=== PATIENT | male | born 1990 | race Caucasian/White ===

== ENCOUNTER 2018-04-23 10:53 | Inpatient (IN) | payer OTHER ==
[2018-04-23] VITALS (13 sets, daily range): BP systolic 125–155; BP diastolic 66–113
[~2018-04-23] VITALS: Ht 182.9 cm; Wt 110.7 kg
[~2018-04-23 10:53] MED LIST: ALBUTEROL INHAL17 GM; ALBUTEROL2.5 MG/31 INH; CLARITIN10 MG; NORCO 5-325 TA1 EACH PO; NORFLEX100 MG PO; SINGULAIR
[2018-04-23] MEDS ORDERED: ZOLOFT25 MG PO (10:58)
[2018-04-23] MEDS ORDERED: XANAX1 MG PO (10:58)
[2018-04-23] MEDS ORDERED: BUPRENORPHIN-N1 EACH PO (10:58)
[2018-04-23 11:26] LABS: HEMATOCRIT 42.9 % (42.0-52.0); HEMOGLOBIN 14.2 gm/dL (14.0-18.0); MCH 29.5 pg (26.0-34.0); MCV 89.2 fL (80.0-100.0); MPV 7.9 fl. (7.2-11.1); NUCLEATED RBCS 0 /100WBC; PLATELET COUNT* 258 thou/uL (150-400); RBC 4.81 mil/uL (4.50-6.00); RDW-CV 13.9 % (10.5-14.5); WBC 18.5 thou/uL (4.0-11.0)
[2018-04-23 11:31] LABS: CALCIUM 8.8 mg/dL (8.5-10.1); CREATININE 0.8 mg/dL (0.6-1.3); POTASSIUM 4.2 mmol/L (3.5-5.1)
[2018-04-23 11:36] LABS: TOTAL BILIRUBIN 0.2 mg/dL (<0.1-1.0); TOTAL PROTEIN 7.2 g/dL (6.4-8.2)
[2018-04-23 11:36] LABS: AMP/METHAMP Negative (Negative); BARBITURATES Negative (Negative); BENZODIAZEPINES POSITIVE (Negative); COCAINE Negative (Negative); METHADONE Negative (Negative); OPIATES Negative (Negative); PCP Negative (Negative); THC Negative (Negative)
[2018-04-23 11:59] LABS: ABSOLUTE LYMPHOCYTES 1.5 thou/uL (0.8-5.3); ABSOLUTE MONOCYTES 1.1 thou/uL (0.0-1.2); ABSOLUTE NEUTROPHILS 15.9 thou/uL (1.6-8.1); ANISOCYTOSIS 1+; PLATELET ESTIMATE ADEQUATE; POIKILOCYTOSIS 1+
[2018-04-23 14:21] LABS: APTT 25.9 Seconds (25.0-31.3); PROTIME 10.1 Seconds (9.20-11.50)
[2018-04-23 14:33] LABS: BE -0.2 mmol/L (-2 to +3); HCO3 26.7 mmol/L (22.0-26.0); PCO2 52.9 mmHg (35.0-45.0); pH 7.321 (7.340-7.450)
[2018-04-23 16:12] LABS: ACETAMINOPHEN < 2 ug/mL (10-30); SALICYLATE 3.2 mg/dL (2.8-20.0)
[2018-04-23 17:09] LABS: BE 0.3 mmol/L (-2 to +3); HCO3 27.3 mmol/L (22.0-26.0); PO2 64.8 mmHg (75.0-100.0); pH 7.324 (7.340-7.450)
[2018-04-23 17:13] LABS: PCO2 53.8 mmHg (35.0-45.0)
[2018-04-24] VITALS (14 sets, daily range): BP systolic 111–143; BP diastolic 61–93
[2018-04-24 02:07] LABS: HIV-1/HIV-2 ANTIBODY Non Reactive (Non Reactive)
[2018-04-24 05:32] LABS: HEMATOCRIT 40.1 % (42.0-52.0); HEMOGLOBIN 13.2 gm/dL (14.0-18.0); MCH 29.7 pg (26.0-34.0); MCHC 32.9 g/dL (28.0-37.0); MCV 90.3 fL (80.0-100.0); MPV 8.9 fl. (7.2-11.1); RBC 4.44 mil/uL (4.50-6.00); RDW-CV 13.7 % (10.5-14.5); WBC 9.6 thou/uL (4.0-11.0)
[2018-04-24 05:41] LABS: ALBUMIN 3.4 g/dL (3.4-5.0); CALCIUM 7.9 mg/dL (8.5-10.1); CREATININE 0.7 mg/dL (0.6-1.3); POTASSIUM 4.5 mmol/L (3.5-5.1); TOTAL BILIRUBIN 0.3 mg/dL (<0.1-1.0); TOTAL PROTEIN 6.6 g/dL (6.4-8.2)
[2018-04-24 06:57] LABS: BE 0.6 mmol/L (-2 to +3); PO2 83.3 mmHg (75.0-100.0)
[2018-04-24 07:00] LABS: pH 7.274 (7.340-7.450)
--- NOTE | 2018-04-24 07:50 | CON ---
[address] [address] CONSULTATION Name: LORENAKAREN NICK Room: [address] IN M.R.#: [id number] Admission: 04/23/18 Attend Phys: Suzy Dyer MD Discharge: Date of : 88 Report #: [id number] THIS REPORT FOR: //name// CC: [facility] physician/PCP Suzy Dyer DATE OF SERVICE: 04/23/2018 Infectious Disease Consultation ATTENDING PHYSICIAN: Dr. Dyer. REASON FOR EVALUATION: Pneumonitis, complicated by hemoptysis. HISTORY OF PRESENT ILLNESS: Chart reviewed, patient examined. The patient is a 28-year-old man with a history of asthma who was fairly well controlled, who apparently woke this morning, was expectorating large amounts of blood as he describes, not clear that he has had significant prodromal illness. He went to bed last night feeling okay. Evaluation was found to have his mild temperature elevation. X-ray shows infiltrates in the right upper and middle lobe. CT suggests perhaps necrotizing component. He is mildly encephalopathic. Denies significant pulmonary-related complaints. He has not been anorexic. Weight has been stable. Denies any particular exposure history including recent travel or animal exposure. He does have couple dogs and a cat. 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 ALLERGIES: None. MEDICATIONS: Include vancomycin, levalbuterol, tramadol, methylprednisolone, pantoprazole, Zosyn. PAST MEDICAL HISTORY: Asthma. SOCIAL HISTORY: Smokes cigarettes. Does use ethanol. There is illicit drug use previously. FAMILY HISTORY: Noncontributory. REVIEW OF SYSTEMS: As above. PHYSICAL EXAMINATION: GENERAL: He is somewhat lethargic, mildly encephalopathic, appears to be in eqvz-yr-zmvatgqi distress, well nourished. He is ill, [place] [address] CONSULTATION Name: LORENAKAREN MAZARIEGOS Room: [address] IN [facility].#: [id number] Admission: 04/23/18 Attend Phys: Suzy Dyer MD Discharge: Date of : 88 Report #: [id number] VITAL SIGNS: Temperature 98.6, pulse 93, respirations 13, blood pressure is 130/76. SKIN: Warm, dry, no rashes. HEENT: Unremarkable. LUNGS: Scattered coarse breath sounds on the right. HEART: Regular. Borderline tachycardic. I do not appreciate murmur. ABDOMEN: Soft. There are no peritoneal signs. GENITOURINARY: Deferred. RECTAL: Deferred. DATA: Some measurable aspirin level that is low. No acetaminophen. ABGs: pH 7.321, pCO2 of 52.9, pO2 of 75 and it is on 4 L. PT of 10.1, INR 1.0. CBC: White count of 18.5, H and H 14.2 and 42.9, platelets of 258. CT chest showed right lower lobe pneumonitis, suggests to me a necrotizing component. Drug screen positive for benzodiazepines. Electrolytes: Sodium 141, potassium 4.2, chloride 105, bicarbonate is 32, anion gap of 4, BUN and creatinine 14 and 0.8, glucose of 114, AST of 14, ALT of 26, albumin 4.0, total protein 7.2. Estimated GFR of 114. ASSESSMENT: Pneumonitis, complicated by hemoptysis in this patient with underlying reactive airway disease. I suspect toxin mediated perhaps a Staph or strep etiology. Noted they placed him in tuberculosis isolation. I think this is distinctly unlikely given the , which it occurred, certainly more consistent with bacterial etiology. Sputum results are pending as are urinary antigen. We will send off a Methicillin-resistant Staphylococcus aureus surveillance study as well. Agree with vancomycin and Zosyn to give us reasonable coverage, particularly expect some atypical. <ELECTRONICALLY SIGNED> By: Nick Kilgore MD 04/24/18 0750 1641 0226Jotomás Kilgore MD /nt
--- NOTE | 2018-04-24 08:46 | CON ---
[address] [address] CONSULTATION Name: LORENAKAREN MAZARIEGOS Room: [address] IN M.R.#: [id number] Admission: 04/23/18 Attend Phys: Suzy Dyer MD Discharge: Date of : 88 Report #: [id number] THIS REPORT FOR: //name// CC: [facility] physician/PCP Suzy Dyer DATE OF SERVICE: 04/23/2018 REASON FOR CONSULT: Pneumonia, hemoptysis. HISTORY OF PRESENT ILLNESS: This is a 28-year-old male patient with history of asthma since childhood. He is on inhalers at home. Also, he has history of drug abuse, heroin IV in the past. He told that the last time he used it was 2 years ago and since then, he had been on medication for that. Also in the past, he had an episode of pneumonia. Six years ago, he was hospitalized at [facility] at that time and according to him, his presentation was hemoptysis and took him a while to resolve, although he did not need any procedures. He started having cough yesterday and then he noticed this morning, he started coughing up blood-tinged sputum. Sometimes the sputum is more red than other times. During my visit, I asked him to provide a sample and actually it looked blood-tinged sputum. He had no fever, no chills, no sick contacts. Apparently, his O2 saturation was 86% on room air and had to be on 4 liter oxygen. He had no fever, no chills. He had no lower extremity edema. He has wheezes related to his asthma and he noticed getting worse. He denied any headache or blurring of vision. He denied any rashes, joint pain or muscle pain. PAST MEDICAL HISTORY: 1. Asthma as mentioned above. 2. Previous episodes of hemoptysis 6 years ago related to pneumonia. According to him, no surgical intervention or bronchoscopy was done. HOME MEDICATIONS: He is on albuterol. He is on sertraline and alprazolam. ALLERGIES: No known drug allergies. SURGICAL hX: no previous chest surgeries SOCIAL HISTORY: he is smoker, He drinks alcohol. He reports he drinks 2 beers a night. Denied any further drug abuse, although he has a history. REVIEW OF SYSTEMS: Twelve systems reviewed with the patient and negative other than as mentioned above. Interestingly, he denied feeling short of breath [place] [address] CONSULTATION Name: KAREN CARRILLO Room: [address]#: [id number] Admission: 04/23/18 Attend Phys: Suzy Dyer MD Discharge: Date of : 88 Report #: [id number] PHYSICAL EXAMINATION: VITAL SIGNS: On examination, he is on 4 liters oxygen, O2 saturation 93%, blood pressure 132/66, pulse rate of 95, respiratory rate of 18, and his temperature 37.3. GENERAL: Slightly drowsy, arousable, protecting the airways. HEAD: Normocephalic, atraumatic. EYES: Pupils reactive to light. External ear looks healthy and normal. Not pale, no jaundice. ORAL CAVITY: Moist mucous membrane. Mallampati of 2. NECK: Supple. No palpable lymph nodes. No palpable thyroid. Trachea is central. CHEST: Diminished air movement bilaterally with wheezes bilaterally, prolonged expiratory phase, rhonchi in the right lung. HEART: S1, S2, no murmur. ABDOMEN: Benign, soft, lax, nontender. EXTREMITIES: Lower extremity: No edema. No masses felt. No calf tenderness. SKIN: Normal for age and race. No rash. MUSCULOSKELETAL: Normal inspection, no deformities, no joint swelling or tenderness. PSYCHIATRIC: Mood and affect, good insight and judgment. NEUROLOGIC: Moving 4 extremities spontaneously. No focal weakness. LYMPHATIC: No enlarged lymph node. LABORATORY DATA: His chest x-ray showed right-sided infiltrate. CT scan of the chest showed alveolar opacities in the upper and lower lobe. His white blood count elevated at 18.5 with left shift with platelets of 258, hemoglobin of 14.2. His INR is pending. His creatinine is 0.8 with bicarb 32, potassium 4.2. IMPRESSION: 1. Acute hypoxemic respiratory failure. 2. Pneumonia. 3. Pulmonary infiltrate. 4. Hemoptysis, non-massive. 5. Asthma exacerbation The patient most likely has pneumonia given the fact that he has elevated white blood count with left shift; however, his presentation included hemoptysis, which is non-massive, but he had similar presentation 6 years ago for pneumonia according to him and he responded to treatment. At the same time, he has bronchospasm related to his asthma and he needs to be treated for that. At this point, we will treat as pneumonia with broad-spectrum antibiotic, collect sputum for analysis. Check Streptococcus pneumoniae antigen and Legionella antigen. We will check ANCA profile for him and GERMAIN profile for him. We will follow his chest imaging and he will be on IV steroids and scheduled nebulization treatment. I would monitor in the ICU for the first day or 2 [place] [address] CONSULTATION Name: KAREN CARRILLO Room: M.001-P ADM IN M.R.#: [id number] Admission: 04/23/18 Attend Phys: Suzy Dyer MD Discharge: Date of : 89 Report #: [id number] we will re-evaluate according to his clinical course. Thank you for the consult. We will follow along with you. <ELECTRONICALLY SIGNED> By: Tobias Archer MD 04/24/18 0846 1413 0352Dyelena Archer MD /nt
[2018-04-24 14:18] LABS: BE 0.6 mmol/L (-2 to +3); HCO3 27.8 mmol/L (22.0-26.0); PCO2 VENOUS 56.2 mmHg (41.0-51.0); PO2 VENOUS 47.7 mmHg (35.0-45.0)
[2018-04-25] VITALS: BP 163/73
[2018-04-25 01:55] VITALS: BP 142/78
[2018-04-25 03:42] LABS: BE 2.4 mmol/L (-2 to +3); HCO3 29.6 mmol/L (22.0-26.0)
[2018-04-25 03:43] LABS: PCO2 57.4 mmHg (35.0-45.0)
[2018-04-25 04:00] VITALS: BP 133/70
[2018-04-25 05:39] LABS: HEMATOCRIT 36.9 % (42.0-52.0); HEMOGLOBIN 11.9 gm/dL (14.0-18.0); MCH 29.5 pg (26.0-34.0); MCHC 32.3 g/dL (28.0-37.0); MCV 91.5 fL (80.0-100.0); MPV 9.4 fl. (7.2-11.1); RBC 4.03 mil/uL (4.50-6.00); RDW-CV 14.4 % (10.5-14.5)
[2018-04-25 05:59] LABS: CREATININE 0.5 mg/dL (0.6-1.3); MAGNESIUM 1.6 mg/dL (1.8-2.4); POTASSIUM 3.8 mmol/L (3.5-5.1); TOTAL BILIRUBIN 0.2 mg/dL (<0.1-1.0); TOTAL PROTEIN 5.9 g/dL (6.4-8.2)
[2018-04-25 15:55] VITALS: BP 119/66
[2018-04-25 20:12] VITALS: BP 133/86
[2018-04-25 23:42] VITALS: BP 144/93
[2018-04-26 04:00] VITALS: BP 142/94
[2018-04-26 04:58] LABS: HEMOGLOBIN 11.4 gm/dL (14.0-18.0); MCH 29.6 pg (26.0-34.0); MCHC 32.5 g/dL (28.0-37.0); MCV 91.2 fL (80.0-100.0); MPV 8.5 fl. (7.2-11.1); RBC 3.83 mil/uL (4.50-6.00); RDW-CV 14.3 % (10.5-14.5); WBC 12.9 thou/uL (4.0-11.0)
[2018-04-26 05:22] LABS: CREATININE 0.6 mg/dL (0.6-1.3); POTASSIUM 3.6 mmol/L (3.5-5.1)
[2018-04-26 07:30] VITALS: BP 142/85
[2018-04-26 12:10] VITALS: BP 148/92
--- NOTE | 2018-04-26 12:26 | EKG ---
[place] [address] ELECTROCARDIOGRAM REPORT Name: LORENAKAREN YAIR Room: [place] [address] ADM IN M.R.#: [id number] Admission: 04/23/18 Attend Phys: Suzy Dyer MD Discharge: Date of : 88 Report #: [id number] THIS REPORT FOR: //name// 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
--- NOTE | 2018-04-26 12:40 | EKG ---
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
[2018-04-26 16:00] VITALS: BP 142/81
[2018-04-26 20:20] VITALS: BP 143/96
[2018-04-26 23:59] VITALS: BP 140/82
[2018-04-27] VITALS (16 sets, daily range): BP systolic 135–169; BP diastolic 81–115
[2018-04-27 05:06] LABS: HEMATOCRIT 36.4 % (42.0-52.0); HEMOGLOBIN 11.9 gm/dL (14.0-18.0); MCH 29.5 pg (26.0-34.0); MCHC 32.6 g/dL (28.0-37.0); MCV 90.4 fL (80.0-100.0); MPV 8.6 fl. (7.2-11.1); RBC 4.03 mil/uL (4.50-6.00); RDW-CV 13.8 % (10.5-14.5); WBC 9.5 thou/uL (4.0-11.0)
[2018-04-27 05:33] LABS: CALCIUM 8.9 mg/dL (8.5-10.1); CREATININE 0.6 mg/dL (0.6-1.3); MAGNESIUM 1.7 mg/dL (1.8-2.4); POTASSIUM 3.2 mmol/L (3.5-5.1)
[2018-04-27 12:05] LABS: ANTI-DNA SCREEN <1 IU/mL (0-9); ANTI-RNP <0.2 AI (0.0-0.9)
--- NOTE | 2018-04-27 15:12 | 2DMMODE ---
[place] [address] 2 D/M-MODE ECHOCARDIOGRAM Name: KAREN CARRILLO Room: [place] [address] ADM IN M.R.#: [id number] Admission: 04/23/18 Attend Phys: Suzy Dyer, Discharge: Date of : 88 Date of Service: 04/27/18 1512 Report #: [id number] THIS REPORT FOR: //name// APPROVED REPORT Study performed: 04/27/2018 13:44:53 EXAM: Comprehensive 2D, Doppler, and color-flow Echocardiogram Patient Location: Bedside BSA: 2.32 HR: 65 bpm BP: 152/100 mmHg Other Information Study Quality: Fair Indications Atrial Fibrillation 2D Dimensions LVEF(%): 68.50 (>50%) IVSd: 10.05 (7-11mm) LVOT Diam: 23.01 (18-24mm) LVDd: 53.19 mm PWd: 11.45 (7-11mm) Ascending Ao: 25.74 (22-36mm) LVDs: 32.64 (25-40mm) Aortic Root: 26.62 mm Chavis's LVEF: 68.50 % Volumes Left Atrial Volume (Systole) LA ESV Index: 26.00 mL/m2 Aortic Valve AoV Peak Raghu.: 1.20 m/s AO Peak Gr.: 5.78 mmHg LVOT Max P.28 mmHg AO Mean Gr.: 3.46 mmHg LVOT Mean P.42 mmHg LVOT Max V: 1.15 m/s AO V2 VTI: 25.08 cm LVOT Mean V: 0.70 m/s [place]T (VTI): 4.42 cm2 LVOT V1 VTI: 26.67 cm Mitral Valve E/A Ratio: 1.77 MV Decel. Time: 200.98 ms MV E Max Raghu.: 1.04 m/[place] [address] 2 D/M-MODE ECHOCARDIOGRAM Name: KAREN CARRILLO Room: [address] IN .R.#: [id number] Admission: 04/23/18 Attend Phys: Suzy Dyer, Discharge: Date of : 88 Date of Service: 04/27/18 1512 Report #: [id number] MV PHT: 58.28 ms MVA (PHT): 3.77 cm2 TDI E/Lateral E': 5.78 E/Medial E': 5.78 Medial E' Raghu.: 0.18 m/s Lateral E' Raghu.: 0.18 m/s Pulmonary Valve PV Peak Raghu.: 0.98 m/s PV Peak Gr.: 3.84 mmHg Tricuspid Valve RAP Estimate: 5.00 mmHg TR Peak Gr.: 33.00 mmHg RVSP: 38.00 mmHg PA Pressure: 38.00 mmHg Left Ventricle The left ventricle is normal size. There is normal LV segmental wall motion. There is normal left ventricular wall thickness. Left ventricular systolic function is normal. The left ventricular ejection fraction is within the normal range. LVEF is 60-65%. The left ventricular diastolic function is normal. Right Ventricle Right ventricle is dilated. The right ventricular systolic function is normal. Atria The left atrium size is normal. The right atrium size is normal. Aortic Valve The aortic valve is normal in structure. No aortic regurgitation is present. There is no aortic valvular stenosis. Mitral Valve The mitral valve is normal in structure. Trace mitral regurgitation. No evidence of mitral valve stenosis. Tricuspid Valve The tricuspid valve is normal in structure. Trace tricuspid regurgitation. estimate pa pressure 35 mm Hg Pulmonic Valve The pulmonary valve is normal in structure. There is no pulmonic [place] [address] 2 D/M-MODE ECHOCARDIOGRAM Name: LORENAKAREN MAZARIEGOS Room: [address] IN [facility]#: [id number] Admission: 04/23/18 Attend Phys: Suzy Dyer, Discharge: Date of : 88 Date of Service: 04/27/18 1512 Report #: [id number] Great Vessels The aortic root is normal in size. IVC is not well visualized. Pericardium There is no pericardial effusion. <Conclusion> Left ventricular systolic function is normal. The left ventricular ejection fraction is within the normal range. <ELECTRONICALLY SIGNED> By: Fortunato Roberts MD, FACC 04/27/18 1512 11 151 Fortunato Roberts MD, FACC /INF
[2018-04-28] VITALS: BP 142/93
[2018-04-28 04:00] VITALS: BP 157/97
[2018-04-28 08:10] VITALS: BP 160/88
--- NOTE | 2018-04-28 11:09 | EKG ---
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 04/28/18 1109 0605 0605 Dino Leggett MD, [facility] /EPI
--- NOTE | 2018-04-28 11:15 | CARD ---
[address] [address] CARDIAC CATH REPORT Name: LORENAKAREN MAZARIEGOS Room: [place] [address] ADM IN M.R.#: [id number] Admission: 04/23/18 Attend Phys: Suzy Dyer MD Discharge: Date of : 88 Report #: [id number] THIS REPORT FOR: //name// CC: [facility] physician/PCP Suzy Dyer DATE OF SERVICE: 04/27/2018 TITLE OF PROCEDURE: Direct current cardioversion of atrial fibrillation. INDICATIONS: Cardioversion was requested in this patient with a history of atrial fibrillation. The patient had received Xarelto 20 mg orally the night prior to the procedure. The patient had been in atrial fibrillation less than 72 hours. PROCEDURE: Moderate sedation was accomplished by administering a total of 12 mg of Versed and 125 mcg of fentanyl intravenously in divided doses. Hands free cardioversion patches were applied in anterior and posterior location. The patient was then cardioverted with 200 joules of direct current energy. He appeared to be in sinus rhythm. The patient was arousable at the end of the procedure. IMPRESSION: Successful direct current cardioversion of atrial fibrillation to normal sinus rhythm. <ELECTRONICALLY SIGNED> By: Fortunato Roberts MD, [facility] 04/28/18 1115 0925 1511Dgermania Roberts MD, FACC /nt
[2018-04-28] MEDS ORDERED: SORINE 80 MG TA80 M1 PO (11:35)
[2018-04-28] MEDS ORDERED: TRAMADOL 50 MG50 MG PO (11:35)
[2018-04-28] MEDS ORDERED: XARELTO20 MG PO (11:35)
[2018-04-28] MEDS ORDERED: AUGMENTIN 875-1 EACH PO (11:35)
[2018-04-28] MEDS ORDERED: PREDNISONE 20 M20 MG PO (11:35)
[2018-04-28 12:31] VITALS: BP 160/88
[2018-04-28] MEDS ORDERED: TYLENOL325 MG PO (12:55)
== END 2018-04-28 13:47 | disposition home or self-care (01) | DRG 177 ==
LOC: M.ERS 10:53 → M.ICU 12:27 → M.TBA-ER 12:27 → M.ICU 13:17 → M.2W 04-25 01:53
PROVIDERS: Internal Medicine; Personal Emergency Response Attendant; ADMIT Internal Medicine
PROC: 05HY33Z Insertion of Infusion Device into Upper Vein, Percutaneous Approach (ICD-10-PCS; principal; 2018-04-24)
PROC: 5A2204Z Restoration of Cardiac Rhythm, Single (ICD-10-PCS; 2018-04-27)
DX: J15.6 Pneumonia due to other Gram-negative bacteria (principal); J96.01 Acute respiratory failure with hypoxia; J96.02 Acute respiratory failure with hypercapnia; R65.11 Systemic inflammatory response syndrome (SIRS) of non-infectious origin with acute organ dysfunction; J45.901 Unspecified asthma with (acute) exacerbation; I48.91 Unspecified atrial fibrillation; F17.210 Nicotine dependence, cigarettes, uncomplicated; F10.10 Alcohol abuse, uncomplicated; Z87.828 Personal history of other (healed) physical injury and trauma; Z82.49 Family history of ischemic heart disease and other diseases of the circulatory system

== ENCOUNTER 2018-06-15 16:57 | Emergency (ER) | payer OTHER ==
[~2018-06-15] VITALS: Ht 182.9 cm; Wt 113.4 kg
[~2018-06-15 16:57] MED LIST changes: +AUGMENTIN 875-1 EACH PO; +BUPRENORPHIN-N1 EACH PO; +PREDNISONE 20 M20 MG PO; +SORINE 80 MG TA80 M1 PO; +TRAMADOL 50 MG50 MG PO; +TYLENOL325 MG PO; +XANAX1 MG PO; +XARELTO20 MG PO; +ZOLOFT25 MG PO
[2018-06-15 17:52] LABS: MCH 30.3 pg (26.0-34.0); MCHC 33.4 g/dL (28.0-37.0); MCV 90.8 fL (80.0-100.0); NUCLEATED RBCS 0 /100WBC; PLATELET COUNT* 235 thou/uL (150-400); RDW-CV 14.8 % (10.5-14.5); WBC 10.7 thou/uL (4.0-11.0)
[2018-06-15 18:01] LABS: CALCIUM 8.8 mg/dL (8.5-10.1); CREATININE 0.7 mg/dL (0.6-1.3); POTASSIUM 3.9 mmol/L (3.5-5.1)
[2018-06-15 18:08] LABS: ABSOLUTE EOSINOPHILS 0.1 thou/uL (0.0-0.7); ABSOLUTE LYMPHOCYTES 0.4 thou/uL (0.8-5.3); ABSOLUTE MONOCYTES 0.1 thou/uL (0.0-1.2); ABSOLUTE NEUTROPHILS 10.1 thou/uL (1.6-8.1); PLATELET ESTIMATE ADEQUATE
[2018-06-15 18:09] LABS: ALBUMIN 3.9 g/dL (3.4-5.0); TOTAL BILIRUBIN 0.7 mg/dL (<0.1-1.0); TOTAL PROTEIN 7.3 g/dL (6.4-8.2)
[2018-06-15 18:53] VITALS: BP 167/95
== END 2018-06-15 18:55 | disposition home or self-care (01) ==
LOC: M.ERS 16:57
PROVIDERS: Nurse Practitioner Family
DX: J45.909 Unspecified asthma, uncomplicated (principal); K04.7 Periapical abscess without sinus

== ENCOUNTER 2019-11-01 21:08 | Emergency (ER) | payer OTHER ==
[~2019-11-01] VITALS: Ht 182.9 cm; Wt 108.9 kg
[2019-11-01 23:02] LABS: INFLUENZA A ANTIGEN Negative (Negative); INFLUENZA B ANTIGEN Negative (Negative)
[2019-11-02] MEDS ORDERED: TESSALON PERLE100 MG PO ×2 (00:02)
[2019-11-02] MEDS ORDERED: DOXYCYCLINE 10100 MG PO ×2 (00:02)
[2019-11-02] MEDS ORDERED: VENTOLIN HFA 1818 GM INH ×2 (00:02)
[2019-11-02 00:24] VITALS: BP 135/78
== END 2019-11-02 00:29 | disposition home or self-care (01) ==
LOC: M.ERS 21:08
PROVIDERS: Nurse Practitioner Family
DX: J18.9 Pneumonia, unspecified organism (principal); J45.909 Unspecified asthma, uncomplicated